=== PATIENT | male | born 1950 | race Caucasian/White ===

== ENCOUNTER → 2018-12-17 | Outpatient (CLI) | payer MEDICARE ==
[~2018-12-17] MED LIST: LORAZEPAM PO; PANTOPRAZOLE PO
== END | disposition home or self-care (01) ==
LOC: STAR 13:27
PROVIDERS: ATTEND Thoracic Surgery (Cardiothoracic Vascular Surgery)
DX: Z01.818 Encounter for other preprocedural examination (principal); R00.1 Bradycardia, unspecified; Z88.5 Allergy status to narcotic agent
CPT/HCPCS: 93005

== ENCOUNTER 2018-12-25 10:00 | Day surgery (SDC) | payer MEDICARE ==
[2018-12-17 13:54] VITALS: BP 104/68
[~2018-12-25] VITALS: Ht 167.6 cm; Wt 65.9 kg
[~2018-12-25 10:00] MED LIST changes: +BUPIVACAINE/PF-EPI 0.5% 1:200K ONE
[2018-12-25] MEDS ORDERED: LACTATED RINGERS 1,000 ML IV SCH ×2 (10:21→12:46)
[2018-12-25] MEDS ORDERED: ACETAMINOPHEN 500 MG TABLET PO ONE (10:30)
[2018-12-25] MEDS ORDERED: DIAZEPAM 5 MG TABLET PO ONE (10:30)
[2018-12-25] MEDS ORDERED: ONDANSETRON ODT 8 MG PO ONE (10:30)
[2018-12-25] MEDS ORDERED: GABAPENTIN 300 MG CAPSULE PO ONE (10:30)
[2018-12-25] MEDS ORDERED: LORA0.5T PO (10:44)
[2018-12-25] MEDS ORDERED: DICY10CA3 PO (10:44)
[2018-12-25] MEDS ORDERED: MAG355OR14 PO (10:44)
[2018-12-25] MEDS ORDERED: PANT40TA5 PO (10:44)
[2018-12-25 10:47] VITALS: BP 104/68
[2018-12-25] MEDS ORDERED: FENTANYL PF 250 MCG/5ML ONE (11:11)
[2018-12-25] MEDS ORDERED: MIDAZOLAM 1 MG/ML, 2ML ONE (11:11)
[2018-12-25] MEDS ORDERED: DEXAMETHASONE 4 MG/ML, 1ML ONE (11:43)
[2018-12-25] MEDS ORDERED: PROPOFOL 10 MG/ML, 20ML ONE (12:21)
[2018-12-25] MEDS ORDERED: GLYCOPYRROLATE 0.2MG/1ML, 5ML ONE (12:21)
[2018-12-25] MEDS ORDERED: CEFAZOLIN 1,000 MG ONE (12:21)
[2018-12-25] MEDS ORDERED: NEOSTIGMINE 1 MG/ML, 10ML ONE (12:22)
[2018-12-25] MEDS ORDERED: ROCURONIUM 10MG/ML,5ML ONE (12:22)
[2018-12-25] MEDS ORDERED: SUCCINYLCHOLINE 20 MG/ML, 10ML ONE (12:22)
[2018-12-25] MEDS ORDERED: HYDROmorphone 2 MG/ML, 1ML IVPush PRN ×2 (12:30→13:00)
[2018-12-25] MEDS ORDERED: MIDAZOLAM 1 MG/ML, 2ML IV PRN (12:30)
[2018-12-25] MEDS ORDERED: MEPERIDINE/PF 25MG/0.5ML IVPush PRN (12:30)
[2018-12-25] MEDS ORDERED: FENTANYL PF 100 MCG/2ML IV PRN (12:30)
[2018-12-25] MEDS ORDERED: SCOPOLAMINE PATCH, 1.5MG PATCH.TD72 TD PRN (12:30)
[2018-12-25] MEDS ORDERED: PROMETHAZINE 25 MG/ML, 1ML IV PRN (12:30)
[2018-12-25] MEDS ORDERED: ALBUTEROL/IPRATROPIUM 2.5MG/0.5MG, 3 ML NPPB PRN (12:30)
[2018-12-25] MEDS ORDERED: HYDROcodone/APAP 7.5-325MG/15ML UDC PO PRN ×2 (12:30→13:00)
[2018-12-25] MEDS ORDERED: ONDANSETRON 2MG/ML, 2ML IV PRN (12:30)
[2018-12-25] MEDS ORDERED: KETOROLAC 30 MG/1 ML IVPush PRN (13:00)
[2018-12-25] MEDS ORDERED: PROMETHAZINE 25 MG/ML, 1ML ONE (13:00)
[2018-12-25] MEDS ORDERED: ONDANSETRON 2MG/ML, 2ML IVPush PRN (13:00)
[2018-12-25] MEDS ORDERED: HYDROmorphone 1 MG/ML, 1ML ONE (13:01)
[2018-12-25] MEDS ORDERED: SCOPOLAMINE PATCH, 1.5MG PATCH.TD72 TD ONE (13:18)
[2018-12-25] MEDS ORDERED: KETOROLAC 30 MG/1 ML ONE (13:38)
[2018-12-25] MEDS ORDERED: DIPHENHYDRAMINE 50 MG/ML, 1ML IVPush ONE (14:30)
== END 2018-12-25 15:50 | disposition home or self-care (01) ==
LOC: OUT 10:00
PROVIDERS: ATTEND Thoracic Surgery (Cardiothoracic Vascular Surgery)
DX: K21.9 Gastro-esophageal reflux disease without esophagitis (principal); K44.9 Diaphragmatic hernia without obstruction or gangrene; I25.10 Atherosclerotic heart disease of native coronary artery without angina pectoris; G47.33 Obstructive sleep apnea (adult) (pediatric); Z98.890 Other specified postprocedural states; Z87.891 Personal history of nicotine dependence
CPT/HCPCS: 43280; 88305; 88341; 88342; 88360; J0330; J0690; J1100; J1170; J1200; J1885; J2250; J2550; J2704; J2710; J3010; J3490; J7120; Q0162

== ENCOUNTER → 2019-03-13 | Outpatient (CLI) | payer MEDICARE ==
[~2019-03-13] MED LIST changes: -BUPIVACAINE/PF-EPI 0.5% 1:200K ONE; +DICY10CA3 PO; +LORA0.5T PO; +MAG355OR14 PO; +PANT40TA5 PO
== END | disposition home or self-care (01) ==
LOC: RAD 08:10
PROVIDERS: ATTEND Physician Assistant
DX: K22.8 Other specified diseases of esophagus (principal); M51.36 Other intervertebral disc degeneration, lumbar region
CPT/HCPCS: 74241

== ENCOUNTER 2021-07-19 09:46 | Outpatient (CLI) | payer MEDICARE ==
[~2021-07-19 09:46] MED LIST changes: -PANT40TA5 PO; +PANT40TA6 PO
== END 2021-07-19 23:59 | disposition home or self-care (01) ==
LOC: RAD 09:46
PROVIDERS: ATTEND Internal Medicine Gastroenterology
DX: K31.89 Other diseases of stomach and duodenum (principal); R10.12 Left upper quadrant pain; K59.00 Constipation, unspecified; R10.84 Generalized abdominal pain
CPT/HCPCS: 74018